=== PATIENT | female | born 1990 | race Caucasian/White ===

== ENCOUNTER 2019-12-04 10:48 | Outpatient (CLI) | payer BC, SELFPAY ==
[2019-12-04 11:16] VITALS: BP 132/79; PULSE 91
[2019-12-04 11:29] LABS: Basophils Absolute Auto 0.1 K/mm3 (0.0-0.1); Basophils Percent Auto 0.5 % (0.2-1.2); Eosinophils Absolute Auto 0.1 K/mm3 (0-0.3); Eosinophils Percent Auto 0.7 % (0-4.4); Hematocrit 37.6 % (37.0-47.0); Hemoglobin 12.6 g/dL (12.0-15.0); Immature Granulocyte Absolute 0.33 K/mm3 (0.00-0.031); Lymphocytes Percent Auto 12.6 % (18.3-44.2); Mean Corpuscular HGB Conc 33.5 g/dl (32-36); Mean Corpuscular Hemoglobin 30.2 pg (26-34); Mean Corpuscular Volume 90.2 fl (80-100); Mean Platelet Volume 10.6 fl (7.4-10.4); Monocytes Absolute Auto 1.3 K/mm3 (0.1-0.6); Monocytes Percent Auto 11.8 % (2.6-8.5); Neutrophils Absolute Auto 7.9 K/mm3 (1.3-6.7); Neutrophils Percent Auto 71.4 % (45.5-73.1); Platelet Count Result 181 k/mm3 (150-375); Red Blood Count 4.17 M/mm3 (4.2-5.4); Red Cell Distribution Width 13.4 % (11.5-14.5); White Blood Count 11.1 K/mm3 (4.5-10.0)
[2019-12-04 11:31] VITALS: BP 131/79; PULSE 89
[2019-12-04 11:42] LABS: Add Urine Microscopic? YES; Alanine Aminotransferase 23 U/L (4-35); Albumin Level 3.5 g/dL (3.5-5.1); Alkaline Phosphatase 119 U/L (38-126); Anion Gap 7 mmol/L (8-16); Appearance Urine Clear (Clear); Aspartate Amino Transferase 25 U/L (14-36); Bacteria Urine Trace /hpf; Bilirubin Urine Negative (Negative); Bilirubin,Total < 0.1 mg/dL (0.2-1.3); Blood Urea Nitrogen 10 mg/dL (7-17); Blood Urine Negative (Negative); Carbon Dioxide 22 mmol/L (22-30); Chloride 104 mmol/L (98-107); Color Urine Straw (Yellow); Estimated Glomerular Filt Rate > 60; Glucose 87 mg/dL (65-105); Glucose Urine UA Negative (Negative); Ketones Urine Negative (Negative); Leukocyte Esterase Ur 3+ LEU/UL (Negative); Mucus Urine Rare /lpf; Nitrate Urine Negative (Negative); Potassium 3.9 mmol/L (3.4-5.0); Protein Urine Negative (Negative); RBC Urine 0-2 /hpf (0-2); Sodium 133 mmol/L (137-145); Specific Grav Ur 1.009 (1.001-1.035); Squamous Epithelial Cell Urine Moderate /hpf (Few); Uric Acid 3.3 mg/dL (2.5-7.5); Urobilinogen Urine Negative mg/dL (<2.0)
[2019-12-04 12:33] LABS: Creatinine Urine 25.3 mg/dL; Total Protein Urine Random 13 mg/dL
== END 2019-12-04 13:00 | disposition home or self-care (01) ==
LOC: ANHOBOP 10:55 → ANHOBPP 10:56
PROVIDERS: Visit Provider Obstetrics & Gynecology
DX: O13.9 Gestational [pregnancy-induced] hypertension without significant proteinuria, unspecified trimester (principal); Z3A.00 Weeks of gestation of pregnancy not specified
CPT/HCPCS: 36415; 59025; 80053; 81001; 82570; 84156; 84550; 85025; 99199

== ENCOUNTER 2019-12-20 23:52 | Inpatient (IN) | payer BC, SELFPAY ==
[2019-12-21] VITALS (79 sets, daily range): BP systolic 115–159; BP diastolic 62–113; PULSE 56–145; RESP 16–18; TEMP 36.6–38.3; O2SAT 95–100; BMI 34.9
[2019-12-21] MEDS: LACTATED RINGERS 1,000 ML 125 ML IV CONT ×2 (00:15→00:46)
[2019-12-21 00:22] LABS: Basophils Absolute Auto 0.1 K/mm3 (0.0-0.1); Basophils Percent Auto 0.5 % (0.2-1.2); Eosinophils Absolute Auto 0.1 K/mm3 (0-0.3); Eosinophils Percent Auto 1.1 % (0-4.4); Hematocrit 37.3 % (37.0-47.0); Hemoglobin 12.9 g/dL (12.0-15.0); Immature Granulocyte Absolute 0.31 K/mm3 (0.00-0.031); Immature Granulocyte Percent A 2.7 % (0-0.5); Lymphocytes Absolute Auto 1.73 K/mm3 (0.9-3.2); Mean Corpuscular HGB Conc 34.6 g/dl (32-36); Mean Corpuscular Hemoglobin 30.9 pg (26-34); Mean Corpuscular Volume 89.2 fl (80-100); Mean Platelet Volume 10.5 fl (7.4-10.4); Monocytes Absolute Auto 1.3 K/mm3 (0.1-0.6); Neutrophils Percent Auto 69.7 % (45.5-73.1); Platelet Count Result 181 k/mm3 (150-375); Red Blood Count 4.18 M/mm3 (4.2-5.4); Red Cell Distribution Width 13.4 % (11.5-14.5); White Blood Count 11.5 K/mm3 (4.5-10.0)
--- NOTE | 2019-12-21 00:32 | WPDANESEPPF ---
Anes - Initial Pre Proc Eval Procedure: labor epidural Date/Time: 12/21/19 00:32 Surgeon: Jasbir Frazier MD Pre Op Diagnosis: labor pain Pre Op Diagnosis: Labor Patient Data Age: 29 Gender: F Height: Weight: Last Vital Signs Temp 37.1 C 12/21/19 00:12 Pulse 91 12/21/19 00:30 BP 150/88 H 12/21/19 00:30 Allergies Allergy/AdvReac Type Severity Reaction Status Date / Time No Known Allergies Allergy Verified 12/05/19 13:46 Home Medications Medication Instructions Recorded Confirmed Type PNV cmb#95-ferrous fumarate-FA 1 tablet PO DAILY 12/05/19 12/05/19 History [] Laboratory Tests 12/21/19 12/21/19 00:16 00:16 WBC 11.5 K/mm3 H K/mm3 (4.5-10.0) RBC 4.18 M/mm3 L M/mm3 (4.2-5.4) Hgb 12.9 g/dL g/dL (12.0-15.0) Hct 37.3 % % (37.0-47.0) MCV 89.2 fl fl (80-100) MCH 30.9 pg pg (26-34) MCHC 34.6 g/dl g/dl (32-36) RDW 13.4 % % (11.5-14.5) Plt Count 181 k/mm3 k/mm3 (150-375) MPV 10.5 fl H fl (7.4-10.4) Immature Gran % (Auto) 2.7 % H % (0-0.5) Neut % (Auto) 69.7 % % (45.5-73.1) Lymph % (Auto) 15.0 % L % (18.3-44.2) [place] % (Auto) 11.0 % H % (2.6-8.5) Eos % (Auto) 1.1 % % (0-4.4) Baso % (Auto) 0.5 % % (0.2-1.2) Lymph # (Auto) 1.73 K/mm3 K/mm3 (0.9-3.2) [place] # (Auto) 1.3 K/mm3 H K/mm3 (0.1-0.6) Eos # (Auto) 0.1 K/mm3 K/mm3 (0-0.3) Baso # (Auto) 0.1 K/mm3 K/mm3 (0.0-0.1) Abs Immat Gran (auto) 0.31 K/mm3 H K/mm3 (0.00-0.031) Absolute Neuts (auto) 8.0 K/mm3 H K/mm3 (1.3-6.7) Absolute Nucleated RBC 0.0 K/mm3 K/mm3 (0.0-0.012) Nucleated RBC % 0.0 % % (0.0-0.2) RPR Pending Patient hx anesthesia problems: none Family hx anesthesia problems: none [facility] Past Medical History Medical History (Updated 12/21/19 @ 00:52 by Toni Marr DO) PIH ( induced hypertension) Family History Family History (Updated 12/05/19 @ 13:47 by Mindi Lewis RN) Other Unknown family medical history Social History Social History Substance use: never Spiritual care concerns: No Anes - Eval Final PreProcedure Day of Procedure 12/21/19 00:32 Patient weight: obese Informed Consent: The patient's anesthetic plan and its attendant risks and benefits were discussed with the patient/family/POA. Questions were solicited and answers provided to the satisfaction of the patient/family/POA.
[2019-12-21] MEDS: AMPICILLIN 2 GM/NS 100 ML 2 GM/100 ML BAG IVPB (01:00)
--- NOTE | 2019-12-21 02:07 | WPDOBADMIT ---
Obstetrics - Admit Note Admission Note: record reviewed. Additions to the history and/or subsequent changes in the physical findings follow. 29 y/o at 38 4/7 weeks here complaining of contractions. Also has noted leakage of fluid for about 24 hours. RomPlus positive here. Cervix 7cm dilated on admission. GBS neg. otherwise uncomplicated. Now comfortable with epidural. AVSS ABD soft, nontender, gravid, vertex EXT nontender Cervix 8-9/90/0 NST reactive TOCO: contractions every 2-4 min A: IUP at term with labor, prolonged SROM. P: Anticipate . Cover with ampicillin.
[2019-12-21] MEDS: OXYTOCIN 30 UNITS/NS 500 ML 30 UNITS/500 ML BAG 999 UNITS IV CONT (04:49)
--- NOTE | 2019-12-21 05:03 | PM.OBPRVD ---
OB - Delivery Note Procedure Delivery date: 12/21/19 Procedure: Induction method: none Delivery monitor: external FHT and external uterine Route of delivery: Laceration description: Perineal - 1st Degree Delivery repair: vicryl (3-0) Specimen: Yes (cord blood) Estimated blood loss (mL): 210 Anesthesia type: Epidural Disposition: PACU Complications: None Narrative: 29 y/o at 38 4/7 weeks gestation who presented to the hospital with complaint of contractions. She had also had leakage of fluid for the prior 24 hours. RomPlus was positive. Her cervix was found to be 7cm dilated at the time of admission. Labor was diagnosed. She received ampicillin for prolonged SROM. Amniotomy of a forebag was performed with return of clear fluid. She received an epidural for pain control. Her labor progressed and her cervix dilated completely. She pushed with good effort and delivered the infant's head to the perineum, followed by the body. The nose and mouth were bulb suctioned. After a delay, the cord was clamped and cut. The was handed off the field. Cord blood was collected. The placenta delivered spontaneously and was grossly normal in appearance. The usual 3 vessel cord was noted. A first degree midline perineal laceration was sustained. This was reapproximated using 3 0 Vicryl in interrupted, [id number] fashion. Excellent hemostasis resulted as did excellent reapproximation of the normal anatomy. Needle and instrument counts were correct. The patient was taken to recovery room in stable condition. The infant went to the nursery in stable condition. I was present and scrubbed for the entire delivery. Baby Date of : 12/21/19 Time of : 04:44 Weeks of gestation at delivery: 38 Infant gender: Male Weight (pounds): 7 Weight (ounces): 9 presentation: vertex position: Left Occiput Anterior Placenta delivery description: Spontaneous and Normal Configuration cord vessel description: 3 Vessels score one minute: 9 score five minutes: 9
--- NOTE | 2019-12-21 05:06 | PM.OBDSVD ---
DS: Admitting Diagnosis Admitting Diagnosis Admitting Diagnosis: Labor Prolonged SROM DS: Discharge Diagnosis Discharge Diagnosis (1) (normal spontaneous vaginal delivery): Code(s): O80 - Encounter for full-term uncomplicated delivery Status: Acute (2) Prolonged rupture of membranes, delivered: Status: Acute OB - DS: Summary OB Procedures : None OB Procedures Intrapartum: Spontaneous Vag Delivery OB Procedures: : None DS: Data Data Completed and Pending Labs on day of discharge: Labs from last 24 hours 12/21/19 12/21/19 12/21/19 00:16 00:16 00:16 WBC 11.5 H RBC 4.18 L Hgb 12.9 Hct 37.3 MCV 89.2 MCH 30.9 MCHC 34.6 RDW 13.4 Plt Count 181 MPV 10.5 H Immature Gran % (Auto) 2.7 H Neut % (Auto) 69.7 Lymph % (Auto) 15.0 L [place] % (Auto) 11.0 H Eos % (Auto) 1.1 Baso % (Auto) 0.5 Lymph # (Auto) 1.73 [place] # (Auto) 1.3 H Eos # (Auto) 0.1 Baso # (Auto) 0.1 Abs Immat Gran (auto) 0.31 H Absolute Neuts (auto) 8.0 H Absolute Nucleated RBC 0.0 Nucleated RBC % 0.0 RPR Pending Blood Type O Positive Antibody Screen Negative Discharge Plan Discharge Attending physician on discharge: Jasbir Frazier Discharging Clinician: Jasbir Frazier Patient Disposition: Home, Self-Care Activity: pelvic rest Diet: regular Discharge Instructions: Call or return if temperature above 100.4? F, increased abdominal pain, increased vaginal bleeding or any new problems. Stand Alone Forms: General Discharge Information Follow-up/Referrals: Jasbir Frazier MD [Physician] - (6 weeks) Discharge Medications: New ibuprofen 600 mg tablet 600 mg PO Q6H PRN (Reason: cramps) Qty: 30 RF: 0 No Action PNV cmb#95-ferrous fumarate-FA [] 28 mg iron- 800 mcg Tablet 1 tablet PO DAILY RF: 0 Date of admission: 12/20/19 23:52 Primary Care Provider: PHYSICIAN,BALLISTICS TESTER Admitting Provider: Jasbir Frazier Attending physician on admission: Jasbir Frazier
[2019-12-21] MEDS: OXYTOCIN 30 UNITS/NS 500 ML 30 UNITS/500 ML BAG 125 UNITS IV CONT (05:24)
[2019-12-21] MEDS: CALCIUM CARBONATE (TUMS) 500 MG (200 MG ELEMENTAL) PO ×2 (07:11→18:50)
[2019-12-21] MEDS: IBUPROFEN 600 MG TABLET PO ×3 (08:14→22:30)
[2019-12-21] MEDS: WITCH HAZEL 40 PADS 1 PAD TOPICAL (08:14)
[2019-12-21] MEDS: BENZOCAINE 20% AER SPR (*SP) 56 GM CAN 1 SPRAY TOPICAL (08:14)
--- NOTE | 2019-12-21 09:13 | PC.NURSE ---
Patient transferred to post room #288 per wheelchair. Support person present. Oriented to unit, room, information board, rooming in, admission packet and security measures. Patient verbalizes understanding.
[2019-12-21] MEDS: ACETAMINOPHEN 325 MG TABLET 650 MG PO ×3 (10:47→22:30)
[2019-12-21] MEDS: MULTIVIT/MIN/PREN/FOL AC/IRON TABLET 1 TAB PO (10:48)
[2019-12-21] MEDS: DOCUSATE SODIUM 100 MG CAPSULE PO ×2 (10:48→16:26)
[2019-12-22] MEDS: ACETAMINOPHEN 325 MG TABLET 650 MG PO ×3 (04:30→20:45)
[2019-12-22] MEDS: IBUPROFEN 600 MG TABLET PO ×3 (04:30→20:45)
[2019-12-22 05:08] LABS: Hematocrit 32.9 % (37.0-47.0)
--- NOTE | 2019-12-22 07:20 | PC.NURSE ---
Mother called out for assessment of feeding, reporting she is using a nipple shield for all feedings. Mother reports she has tenderness during entire feeding. Discussed nipple shield precautions and possible complications. Instructions given on application and cleaning of shield. Patient able to return demonstration on proper application of shield. Discussed the need to initiate pumping if continues to nurse with the shield. Patient verbalizes understanding. Reviewed infant feeding cues, frequencies, duration of feedings, feeding elimination flow sheet, and signs of adequate intake. Demonstrated stimulation techniques to wake infant for feeding. Assisted with to breast. Reviewed positioning/alignment in football, holding breast in C hold and guided asymmetrical latch on. Discussed rational for each. Several attempts before was able to latch correctly. Infant keeps bottom lip rolled in. Once on, infant nursed eagerly with steady draws and occasional swallowing for short bursts followed with long pausing. Advised to stimulate to keep awake and nursing effectively for increased intake and to assist with maintaining deep latch. Reviewed signs of a correct latch, effective nursing and suck swallow ratio. Mother reported she could feel infant was latched more deeply and had no discomfort. Infant was able to maintain latch without discomfort to mother. Nipple care reviewed. Instructed mother to call out for RN assistance if she is unable to latch for feeding or she has discomfort with nursing. Instructed feeding should be initiated three hours from start of last feeding or if feeding cues are noted before. Mother voiced understanding of information shared. Parents questioned supplementation, Advised infant is WNL for all signs of adequate intake and not required at this time. Advised parents are able to supplement if they choose.
--- NOTE | 2019-12-22 07:22 | WPDANLDPN2 ---
Anes-Prog Note L&D Date/Time: 12/22/19 07:22 Comfortable throughout: labor and delivery Neuraxial method: epidural Epidural/Spinal procedure site: clean & non-tender Neuro status: Neuro function grossly intact. Cardiovascular status: normal Respiratory status: normal Airway patency: baseline Mental status: baseline Post-Op hydration status: normal Vital Signs: Last Vital Signs Temp 37.1 C 12/21/19 18:52 Pulse 94 12/21/19 18:52 Resp 16 12/21/19 18:52 BP 126/65 12/21/19 18:52 Pulse Ox 100 12/21/19 03:28 Post-procedural complaints: none Patient feedback: Patient satisfied with anesthetic care.
[2019-12-22 07:55] VITALS: BP 119/76; PULSE 79; RESP 16; TEMP 36.7; O2SAT 94
--- NOTE | 2019-12-22 08:00 | PC.NURSE ---
Breast pump provided due to nipple shield use. Instructions given on breast pump care and usage, pumping schedule, nipple care, and collection and storage of breast milk. Encouraged [id number], breast massage and manual expression to stimulate supply. Assessed patient for correct flange size, placement and draw. Patient verbalizes and demonstrates understanding of instructions.
[2019-12-22] MEDS: MULTIVIT/MIN/PREN/FOL AC/IRON TABLET 1 TAB PO (09:01)
[2019-12-22] MEDS: DOCUSATE SODIUM 100 MG CAPSULE PO (09:01)
--- NOTE | 2019-12-22 10:10 | PC.NURSE ---
Mother called out for assessment of feeding, reporting infant is sleepy. Demonstrated stimulation techniques to wake infant for feeding. Assisted with infant to breast. Reviewed positioning/alignment in football, holding breast in C hold and guided asymmetrical latch on. Discussed rational for each. Several attempts before was able to latch correctly. keeps bottom lip rolled in. Once on, infant nursed eagerly with steady draws and occasional swallowing for short bursts followed with long pausing. Advised to stimulate to keep infant awake and nursing effectively for increased intake and to assist with maintaining deep latch. Reviewed signs of a correct latch, effective nursing and suck swallow ratio. Mother reported she could feel was latched more deeply and had no discomfort. was able to maintain latch without discomfort to mother. Nipple care reviewed. Instructed mother to call out for RN assistance if she is unable to latch for feeding or she has discomfort with nursing. Instructed feeding should be initiated three hours from start of last feeding or if feeding cues are noted before. Mother voiced understanding of information shared.
[2019-12-22 11:33] LABS: Rapid Plasma Reagin Non-Reactive (NonReactive)
--- NOTE | 2019-12-22 12:25 | PM.OBPNVD ---
OB - PN: Subj Subjective Date/time seen: 12/22/19 12:25 Narrative: Pain OK. Would like circumcision for son. OB - PN: Obj Data Labs CBC & Chem 7: 12/22/19 04:36 Labs: Laboratory Results - last 24 hr 12/21/19 12/22/19 00:16 04:36 Hgb 11.0 L Hct 32.9 L RPR Non-reactive OB - PN A/P Plan Comments: A: PPD#1, doing well. P: Routine care. Reviewed circ. Exam Psych: Other: AVSS ABD soft, nontender, fundus firm EXT nontender
[2019-12-22 18:59] VITALS: BP 135/72; PULSE 73; RESP 16; TEMP 36.7
[2019-12-23] MEDS: IBUPROFEN 600 MG TABLET PO (05:30)
[2019-12-23] MEDS: ACETAMINOPHEN 325 MG TABLET 650 MG PO (05:30)
[2019-12-23 08:00] VITALS: BP 128/81; PULSE 73; RESP 16; TEMP 36.7; O2SAT 98
--- NOTE | 2019-12-23 08:45 | PC.NURSE ---
Observed mother is able to independently latch infant with appropriate positioning/alignment using nipple shield. She denies any nipple discomfort, is feeding as required and waking to feed if needed. Infant has had several eager feedings in the past 24 hours, and is currently meeting outcomes for weight, output, jaundice and feeding frequencies. Mother continues to supplement after each feeding due to infant ineffective feeding. Mother is pumping without difficulties/discomfort and feels milk is transitioning in. Mother states she feels confident to continue current feeding plan of putting to breast each feeding using the nipple shield, supplementing and pumping. Discussed when to increase supplementation and signs when may be ready to decrease supplementation. Suggested mother have feeding observed by follow up RN, ICP or return for LC appointment, before supplementation is discontinued. Reviewed transition to breast milk, signs of adequate intake, and engorgement/relief. Instructed to call ICP if intake/output less than required. Reviewed regular medications mother is taking. Information provided per Karine. Reviewed community resources on the [facility] website and in the Mom/Baby guide. Information on outpatient services provided. Mother has no further questions at this time.
--- NOTE | 2019-12-23 08:50 | PM.OBPNVD ---
OB - PN: Subj Subjective Date/time seen: 12/23/19 08:50 Narrative: Pain OK. OB - PN: Obj Data Labs CBC & Chem 7: 12/22/19 04:36 Labs: Laboratory Results - last 24 hr 12/21/19 00:16 RPR Non-reactive OB - PN A/P Plan Comments: A: PPD#2, doing well. P: Home to f/u 6 weeks. Exam Psych: Other: AVSS ABD soft, nontender, fundus firm EXT nontender
[2019-12-23] MEDS: MULTIVIT/MIN/PREN/FOL AC/IRON TABLET 1 TAB PO (08:59)
[2019-12-23] MEDS: DOCUSATE SODIUM 100 MG CAPSULE PO (08:59)
[2019-12-24 10:41] VITALS: BP 135/85; PULSE 86; RESP 20; TEMP 36.6; O2SAT 97
== END 2019-12-23 10:45 | disposition home or self-care (01) | DRG 806 ==
LOC: ANHLDR 12-21 05:07 → ANHOB2 12-21 08:24
PROVIDERS: Admitting Provider Obstetrics & Gynecology; Visit Provider Obstetrics & Gynecology
DX: O42.92 Full-term premature rupture of membranes, unspecified as to length of time between rupture and onset of labor (principal); O75.2 Pyrexia during labor, not elsewhere classified; Z37.0 Single live birth; Z3A.38 38 weeks gestation of pregnancy; O13.4 Gestational [pregnancy-induced] hypertension without significant proteinuria, complicating childbirth; O99.214 Obesity complicating childbirth; E66.9 Obesity, unspecified; O70.0 First degree perineal laceration during delivery
CPT/HCPCS: 36415; 85014; 85018; 85025; 86592; 86850; 86900; 86901; 88307; A9270; J0131; J0290; J2590; J2795; J7120

== ENCOUNTER 2021-10-03 15:53 | Inpatient (IN) | payer BC, SELFPAY ==
[2021-10-03] VITALS (17 sets, daily range): BP systolic 120–160; BP diastolic 63–83; PULSE 74–102; RESP 16–18; TEMP 36.6; BMI 36.3
[2021-10-03 17:08] LABS: Basophils Absolute Auto 0.1 K/mm3 (0.0-0.1); Basophils Percent Auto 0.5 % (0.2-1.2); Eosinophils Absolute Auto 0.1 K/mm3 (0-0.3); Hematocrit 35.9 % (37.0-47.0); Hemoglobin 12.4 g/dL (12.0-15.0); Immature Granulocyte Absolute 0.24 K/mm3 (0.00-0.031); Immature Granulocyte Percent A 2.4 % (0-0.5); Lymphocytes Absolute Auto 1.48 K/mm3 (0.9-3.2); Lymphocytes Percent Auto 14.9 % (18.3-44.2); Mean Corpuscular HGB Conc 34.5 g/dl (32-36); Mean Corpuscular Hemoglobin 30.2 pg (26-34); Mean Corpuscular Volume 87.3 fl (80-100); Mean Platelet Volume 9.6 fl (7.4-10.4); Neutrophils Absolute Auto 7.1 K/mm3 (1.3-6.7); Neutrophils Percent Auto 71.2 % (45.5-73.1); Platelet Count Result 204 k/mm3 (150-375); Red Blood Count 4.11 M/mm3 (4.2-5.4); Red Cell Distribution Width 14.2 % (11.5-14.5); White Blood Count 9.9 K/mm3 (4.5-10.0)
[2021-10-03] MEDS: DINOPROSTONE 10 MG VAG INSERT VAGINAL (17:20)
--- NOTE | 2021-10-03 18:00 | WPDANESEPP ---
Anes - Eval Pre Procedure Procedure: LAbor epidural Date/Time: 10/03/21 18:00 Surgeon: Freddie Preop Diagnosis: Abd pain with contractions Pre Op Diagnosis: iol Patient Data Age: 31 Gender: F Height: 1.57 m Weight: 90 kg Last Vital Signs Pulse 100 10/03/21 17:46 BP 153/80 H 10/03/21 17:46 O2 Del Method Room Air 10/03/21 16:37 Allergies Allergy/AdvReac Type Severity Reaction Status Date / Time No Known Allergies Allergy Verified 12/05/19 13:46 Home Medications Medication Instructions Recorded Confirmed Type vit no.95-ferrous 1 tablet PO DAILY 12/05/19 09/09/21 History fumarate 28 mg-folic acid 800 mcg tablet () Laboratory Tests 10/03/21 10/03/21 16:46 16:46 WBC 9.9 K/mm3 K/mm3 (4.5-10.0) RBC 4.11 M/mm3 L M/mm3 (4.2-5.4) Hgb 12.4 g/dL g/dL (12.0-15.0) Hct 35.9 % L % (37.0-47.0) MCV 87.3 fl fl (80-100) MCH 30.2 pg pg (26-34) MCHC 34.5 g/dl g/dl (32-36) RDW 14.2 % % (11.5-14.5) Plt Count 204 k/mm3 k/mm3 (150-375) MPV 9.6 fl fl (7.4-10.4) Immature Gran % (Auto) 2.4 % H % (0-0.5) Neut % (Auto) 71.2 % % (45.5-73.1) Lymph % (Auto) 14.9 % L % (18.3-44.2) [place] % (Auto) 10.0 % H % (2.6-8.5) Eos % (Auto) 1.0 % % (0-4.4) Baso % (Auto) 0.5 % % (0.2-1.2) Lymph # (Auto) 1.48 K/mm3 K/mm3 (0.9-3.2) [place] # (Auto) 1.0 K/mm3 H K/mm3 (0.1-0.6) Eos # (Auto) 0.1 K/mm3 K/mm3 (0-0.3) Baso # (Auto) 0.1 K/mm3 K/mm3 (0.0-0.1) Abs Immat Gran (auto) 0.24 K/mm3 H K/mm3 (0.00-0.031) Absolute Neuts (auto) 7.1 K/mm3 H K/mm3 (1.3-6.7) Absolute Nucleated RBC 0.0 K/mm3 K/mm3 (0.0-0.012) Nucleated RBC % 0.0 % % (0.0-0.2) RPR Pending Patient hx anesthesia problems: none Family hx anesthesia problems: none Results Review: All pre-operative results and documents have been reviewed as part of the pre-operative evaluation. [facility] Past Medical History Medical History Obesity PIH ( induced hypertension) Family History Family History Other Unknown family medical history Social History Social History Smoking status: Never smoker Second hand tobacco smoke exposure: No Substance use: never Spiritual care concerns: No Exam Day of Procedure 10/03/21 18:00
[2021-10-03] MEDS: FAMOTIDINE 20 MG TABLET PO (21:48)
[2021-10-04] VITALS (92 sets, daily range): BP systolic 66–153; BP diastolic 44–110; PULSE 73–115; RESP 16–18; TEMP 36.4–36.9; O2SAT 95–99
[2021-10-04] MEDS: LACTATED RINGERS 1,000 ML 999 ML IV CONT (00:10)
[2021-10-04] MEDS: CALCIUM CARBONATE (TUMS) 500 MG (200 MG ELEMENTAL) PO (01:15)
[2021-10-04] MEDS: ONDANSETRON INJ 4 MG/2 ML VIAL IV PUSH (02:21)
--- NOTE | 2021-10-04 04:31 | WPDOBADMIT ---
Obstetrics - Admit Note Admission Note: record reviewed. Additions to the history and/or subsequent changes in the physical findings follow. 31 y/o at 39 2/7 weeks here for induction of labor. Cervidil placed. She began to have active labor. Cervidil has been withdrawn and she is now comfortable with epidural. GBS neg. AVSS NST reactive TOCO: contractions every 2 min ABD soft, nontender, gravid, vertex EXT nontender Cervix complete/+1. AROM with clear fluid. A: IUP at term. P: Begin pushing.
--- NOTE | 2021-10-04 04:34 | PM.OBPRVD ---
OB - Delivery Note Procedure Delivery date: 10/04/21 Procedure: Induction of labor with Induction method: Per Cervidil Protocol Delivery augmentation: Rupture of Membranes Delivery monitor: External FHT and External Uterine Route of delivery: Laceration Description: None Specimen: Yes (cord blood) Quantitative Blood Loss (ml): 221 Anesthesia type: Epidural Disposition: PACU Complications: None Narrative: 31 y/o at 39 2/7 weeks gestation who presented to the hospital for induction of labor. Cervidil was placed. She developed active labor and the Cervidil was withdrawn. She received an epidural for pain control. Her labor progressed and her cervix dilated completely. Amniotomy was performed with return of clear fluid. She pushed with good effort and delivered the infant's head to the perineum, followed by the body. The nose and mouth were bulb suctioned. After a delay, the cord was clamped and cut. The was handed off the field. Cord blood was collected. The placenta delivered spontaneously and was grossly normal in appearance. The usual 3 vessel cord was noted. The perineum was intact. Needle and instrument counts were correct. The patient was taken to recovery room in stable condition. The infant went to the nursery in stable condition. I was present and scrubbed for the entire delivery. [place] Baby Date of : 10/04/21 Time of : 04:16 Weeks of gestation at delivery: 39 Infant gender: Male Weight (pounds): 7 Weight (ounces): 13 presentation: vertex position: Right Occiput Anterior Placenta delivery description: Spontaneous and Normal Configuration Cord Vessel Description: 3 Vessels and Delayed Cord Clamping score one minute: 9 score five minutes: 9
--- NOTE | 2021-10-04 04:37 | P.DS_ITS ---
DS: Admitting Diagnosis Discharge Date 10/05/21 Admitting Diagnosis IUP at 39 2/7 DS: Discharge Diagnosis Discharge Diagnosis (1) (normal spontaneous vaginal delivery): Code(s): O80 - Encounter for full-term uncomplicated delivery Status: Acute OB - DS: Summary OB Procedures : None OB Procedures Intrapartum: Spontaneous Vag Delivery OB Procedures: : None Time Spent with Patient Time attestation: Total time spent providing and/or coordinating discharge services: DS: Data Data Completed and Pending Labs on day of discharge: Labs from last 24 hours 10/03/21 10/03/21 10/03/21 16:46 16:46 16:46 WBC 9.9 RBC 4.11 L Hgb 12.4 Hct 35.9 L MCV 87.3 MCH 30.2 MCHC 34.5 RDW 14.2 Plt Count 204 MPV 9.6 Immature Gran % (Auto) 2.4 H Neut % (Auto) 71.2 Lymph % (Auto) 14.9 L [place] % (Auto) 10.0 H Eos % (Auto) 1.0 Baso % (Auto) 0.5 Lymph # (Auto) 1.48 [place] # (Auto) 1.0 H Eos # (Auto) 0.1 Baso # (Auto) 0.1 Abs Immat Gran (auto) 0.24 H Absolute Neuts (auto) 7.1 H Absolute Nucleated RBC 0.0 Nucleated RBC % 0.0 RPR Pending Blood Type O Positive Antibody Screen Negative Discharge Plan Discharge Attending physician on discharge: Jasbir Frazier Discharging Clinician: Jasbir Frazier Patient Disposition: Home, Self-Care Activity: pelvic rest Diet: regular Discharge Instructions: Call or return if temperature above 100.4? F, increased abdominal pain, increased vaginal bleeding or any new problems. Stand Alone Forms: General Discharge Information Follow-up/Referrals: Jasbir Frazier MD [Physician] - 6 Weeks Discharge Medications: New ibuprofen 600 mg tablet 600 mg PO Q6H PRN (Reason: cramps) Qty: 30 0RF Continued PNV cmb#95-ferrous fumarate-FA [] 28 mg iron- 800 mcg Tablet 1 tablet PO DAILY Date of admission: 10/03/21 15:53 Primary Care Provider: PHYSICIAN NOT ON STAFF,NONSTAFF Admitting Provider: Jasbir Frazier Attending physician on admission: Jasbir Farzier Condition: Stable
[2021-10-04] MEDS: OXYTOCIN 30 UNITS/NS 500 ML 30 UNITS/500 ML BAG 125 UNITS IV CONT (04:58)
[2021-10-04] MEDS: WITCH HAZEL 40 PADS 1 PAD TOPICAL (07:01)
[2021-10-04] MEDS: BENZOCAINE 20% AER SPR (*SP) 56 GM CAN 1 SPRAY TOPICAL (07:01)
--- NOTE | 2021-10-04 07:16 | OBPPTRN ---
Patient transferred to post room # 292 via wheelchair. Support person present. Oriented to unit, room, information board, rooming in, admission packet and security measures. Patient verbalizes understanding.
[2021-10-04] MEDS: ACETAMINOPHEN 325 MG TABLET 650 MG PO ×3 (07:36→19:20)
[2021-10-04] MEDS: MULTIVIT/MIN/PREN/FOL AC/IRON TABLET 1 TAB PO (07:36)
[2021-10-04] MEDS: DOCUSATE SODIUM 100 MG CAPSULE PO ×2 (07:39→17:50)
[2021-10-04] MEDS: IBUPROFEN 600 MG TABLET PO ×3 (09:50→23:20)
[2021-10-04 11:46] LABS: Rapid Plasma Reagin Non-Reactive (NonReactive)
--- NOTE | 2021-10-04 13:30 | PC.NURSE ---
[id number] Introductions were made, then consulted with patient to assess needs related to . Mother led the conversation with her experience feeding her so far. Mother works well with her . Encouraged understanding of the benefits of skin to skin (unwrapping and placing vertically on her chest), responsive feeding and how to watch for early feeding signs, frequency of feeding on demand about every 8-12 times in 24 hours (every 2-3 hours), milk production, duration of feeding, signs of adequate intake/output and how to record on the feeding sheet. Reviewed positioning and ear, shoulder, hip alignment, supporting the breast, asymmetrical latch (off-center), and leading with the chin with a big open side gape. Resources used to facilitate learning were used with the visual handouts/ tool/mom and baby guide. Mother voiced understanding of responsive feedings, stimulating with skin to skin, hand expressed colostrum, touch, talking to infant to encourage if it has been 2 -3 hours since the start of the last , to call if infant does not latch or there is discomfort with . Reported to the primary RN. [id number] is skin to skin. Reviewed stimulating to breastfeed and encouraged hand expression. Infant is reluctant and sleepy with no feeding cues at this time. [id number] - Attempted to assist mother with stimulating to breastfeed. Mother is skin to skin with infant, diaper was changed and is not interested in at this time and mother states she is interested either. Discussed plan of care and mother has chosen to pump to stimulate her milk production. [id number] Breast pump provided due to ineffective and mother's preference. Instructions given on cleaning, care, usage, there should be no pain, pumping schedule for milk production, collection, and storage of human milk. Parents are encouraged to record pumping schedule on the feeding sheet. Patient was assessed for correct placement, flange size, to pump for comfort and nipple stretching/stimulation for adequate milk production. Mother voiced understanding of the education shared. Reported to the primary RN. 1046 -RN syringe fed 1.5mls of colostrum to . Reported to primary RN.
[2021-10-04] MEDS: SIMETHICONE 80 MG TAB.CHEW PO (16:44)
--- NOTE | 2021-10-04 17:45 | PC.NURSE ---
Mother wishes to pump and bottle feed colostrum/breastmilk. Pumped 12 cc with first pumping session. Colostrum was split into two seperate feedings. Pumped 1cc with the next pumping session, simiac formula provided for next feeding and any subsequent feedings if mother doesn't pump enough volume.
[2021-10-05] VITALS: BP 135/79; PULSE 86; RESP 16; TEMP 36.8
[2021-10-05] MEDS: ACETAMINOPHEN 325 MG TABLET 650 MG PO (02:16)
[2021-10-05 03:57] VITALS: BP 104/51; PULSE 90; RESP 16; TEMP 37
[2021-10-05 05:20] LABS: Hematocrit 36.9 % (37.0-47.0)
[2021-10-05] MEDS: DOCUSATE SODIUM 100 MG CAPSULE PO (07:56)
[2021-10-05] MEDS: MULTIVIT/MIN/PREN/FOL AC/IRON TABLET 1 TAB PO (07:56)
[2021-10-05] MEDS: IBUPROFEN 600 MG TABLET PO (07:56)
[2021-10-05 08:35] VITALS: BP 137/83; PULSE 79; RESP 16; TEMP 36.5; O2SAT 98
--- NOTE | 2021-10-05 08:37 | WPDANLDPN2 ---
Anes-Prog Note L&D Date/Time: 10/05/21 08:37 Comfortable throughout: labor and delivery Neuraxial method: epidural Epidural/Spinal procedure site: clean & non-tender Neuro status: Neuro function grossly intact. Cardiovascular status: normal Respiratory status: normal Airway patency: baseline Mental status: baseline Post-Op hydration status: normal Vital Signs: Last Vital Signs Temp 37.0 C 10/05/21 03:57 Pulse 90 10/05/21 03:57 Resp 16 10/05/21 03:57 BP 104/51 L 10/05/21 03:57 Pulse Ox 97 10/04/21 16:45 O2 Del Method Room Air 10/05/21 03:59 Pain score (VAS): 3 I/O: Intake & Output 10/04/21 10/05/21 10/05/21 23:59 07:59 15:59 Intake Total 240 Balance 240 Post-procedural complaints: none Patient feedback: Patient satisfied with anesthetic care.
--- NOTE | 2021-10-05 08:48 | PM.OBPNVD ---
OB - PN: Subj Subjective Date/time seen: 10/05/21 08:48 Narrative: Pain OK. Would like circumcision for son. Would like to go home. OB - PN: Obj Data Labs CBC & Chem 7: 10/05/21 03:34 Labs: Laboratory Results - last 24 hr 10/03/21 10/05/21 16:46 03:34 Hgb 12.0 Hct 36.9 L RPR Non-reactive OB - PN A/P Plan Comments: A: PPD#1, doing well. P: Reviewed circ. Home to f/u 6 weeks. Exam Psych: Other: AVSS ABD soft, nontender, fundus firm EXT nontender
[2021-10-05 09:00] VITALS: PULSE 79; RESP 16; O2SAT 98
--- NOTE | 2021-10-05 12:46 | PC.NURSE ---
[id number] Mother led the conversation with her experience and plan to feed her so far and her ability to pump and feed her breastmilk. Reminded parents to use good handwashing technique to prevent infection. Mother is feeding appropriately for growth of infant and understands stimulating to eat if needed. has had appropriate feedings in the last 24 hours meets the outcomes for weight, output and jaundice at this time. Mother states she is confident to continue pump and feed her infant at home or when to call for assistance and denies any additional assistance or education at this time. Reinforced understanding of milk production, transition of milk, signs of adequate intake, prevention/relief of engorgement, responsive feeding after visualizing feeding cues, the different methods of stimulating infant to feed 2-3 hours after the start of the last feeding, community resources, medication information reviewed per [facility] and when to call a provider using the resource of the mom and baby guide/[facility] website. Mother voiced understanding of the education shared.
--- NOTE | 2021-10-05 14:14 | PC.NURSE ---
Patient was given the opportunity to view the discharge video Mother & Baby Care, The First Two Weeks and to ask questions. Patient declined viewing the video and has been given the mother/baby guide for home reference.
[2021-10-06 10:02] VITALS: PULSE 74; RESP 18; TEMP 37.1; O2SAT 97
== END 2021-10-05 13:52 | disposition home or self-care (01) | DRG 807 ==
LOC: ANHLDR 10-04 04:40 → ANHOB2 10-04 07:21
PROVIDERS: Admitting Provider Obstetrics & Gynecology; Visit Provider Obstetrics & Gynecology
DX: O13.4 Gestational [pregnancy-induced] hypertension without significant proteinuria, complicating childbirth (principal); Z37.0 Single live birth; Z3A.39 39 weeks gestation of pregnancy
CPT/HCPCS: 36415; 84112; 85014; 85018; 85025; 86592; 86850; 86900; 86901; A9270; J2405; J2590; J2795; J7120